=== PATIENT | female | born 1965 | race Two or more races ===

== ENCOUNTER 2018-08-02 11:35 | Emergency (ER) | payer BC, OTHER ==
[~2018-08-02] VITALS: Ht 165.1 cm; Wt 87.5 kg
--- NOTE | 2018-08-02 11:50 | NUR ---
bib family c/o midsternal cp radiates to left neck and shoulder since last night. PAIN IS 3/10, DULL. HAVING SOB. AOX4, AMB, VSS, RR EVEN AND UNLABORED. DENIES DIZZINESS, WEAKNESS, N/V. FAMILY AT BEDSIDE. MADE COMFORTABLE AND READY FOR EVAL
--- NOTE | 2018-08-02 11:52 | NUR ---
PHOEBE RICHARDSON AT BEDSIDE FOR EKG
--- NOTE | 2018-08-02 11:56 | NUR ---
Uyen wyman in [facility] - 08/02/18 at 1157 by [facility] AT BEDSIDE FOR BLOOD DRAW
--- NOTE | 2018-08-02 11:57 | NUR ---
XRAY AT BEDSIDE
[2018-08-02 12:05] LABS: BASOPHILS # (AUTO) 0.1 /CMM (0.0-0.2); BASOPHILS % (AUTO) 0.8 % (0.0-2.0); EOSINOPHILS % (AUTO) 4.1 % (0.0-6.0); HEMATOCRIT 37 % (33-45); HEMOGLOBIN 12.8 g/dL (11.5-14.8); LYMPHOCYTES # (AUTO) 2.6 /CMM (0.8-4.8); LYMPHOCYTES % (AUTO) 25.2 % (20.0-44.0); MEAN CORPUSCULAR HGB CONC 35 g/dl (31.0-36.0); MEAN CORPUSCULAR VOLUME 89 fL (82-100); MONOCYTES # (AUTO) 0.4 /CMM (0.1-1.30); MONOCYTES % (AUTO) 3.8 % (2.0-12.0); NEUTROPHILS # (AUTO) 6.8 /CMM (1.8-8.9); NEUTROPHILS % (AUTO) 66.1 % (43.0-81.0); PLATELET COUNT (AUTO) 297 /CMM (150-450); RED BLOOD CELL COUNT(AUTO) 4.15 MIL/uL (4.0-5.2); WHITE BLOOD COUNT (AUTO) 10.3 K/uL (4.3-11.0)
[2018-08-02 12:17] LABS: CALCIUM, SERUM 8.7 mg/dL (8.5-10.1); CARBON DIOXIDE 29 mmol/L (21-32); CHLORIDE 109 mmol/L (98-107); CREATININE 0.7 mg/dL (0.6-1.3); GLUCOSE 116 mg/dL (74-106); POTASSIUM 3.7 mmol/L (3.5-5.1); SODIUM SERUM 145 mmol/L (136-145); UREA NITROGEN, BLOOD 12 mg/dL (7-18)
[2018-08-02 12:22] LABS: ALANINE AMINOTRANSFERASE 18 U/L (12-78); ALBUMIN 3.4 g/dL (3.4-5.0); ALKALINE PHOSPHATASE 62 U/L (46-116); ASPARTATE AMINOTRANSFERASE 11 U/L (15-37); BILIRUBIN,DIRECT 0.1 mg/dL (0.0-0.2); BILIRUBIN,TOTAL 0.3 mg/dL (0.2-1.0); TOTAL PROTEIN, SERUM 6.9 g/dL (6.4-8.2)
--- NOTE | 2018-08-02 13:00 | NUR ---
Patient discharged to home in stable condition. Written and verbal after care instructions given. Patient verbalizes understanding of instruction.
[2018-08-02 13:30] VITALS: BP 136/92
== END 2018-08-02 13:00 | disposition home or self-care (01) ==
LOC: ER 11:35
DX: R07.89 Other chest pain (principal); I10 Essential (primary) hypertension
CPT/HCPCS: 36415; 71045-TC; 80048-TC; 80076-TC; 84484-TC; 85025-TC

== ENCOUNTER 2021-02-13 00:10 | Emergency (ER) | payer BC, OTHER ==
[~2021-02-13] VITALS: Ht 170.2 cm; Wt 90.7 kg
--- NOTE | 2021-02-13 00:25 | NUR ---
PATIENT BIBS C/O LEFT SIDED CHEST PAIN RADIATING TO THE BACK AND LEFT ARM SINCE TUESDAY. PATIENT TOOK IBUPROFEN AND NORCO FOR THE PAIN BUT NO RELIEF. PATIENT ALERT AND ORIENTED X4. AMBULATORY WITH NON LABORED BREATHING.
[2021-02-13] MEDS ORDERED: MORPHINE SULFATE INJ 2 MG/ML DISP.SYRIN IV ONE (00:30)
[2021-02-13] MEDS ORDERED: ASPIRIN 325 MG TABLET PO ONE (00:30)
[2021-02-13] MEDS ORDERED: MORPHINE SULFATE INJ 4 MG/ML DISP.SYRIN ONE (00:33)
[2021-02-13] MEDS ORDERED: ASPIRIN 325 MG TABLET ONE (00:33)
[2021-02-13 00:47] LABS: BASOPHILS % (AUTO) 0.5 % (0.0-2.0); EOSINOPHILS % (AUTO) 5.2 % (0.0-6.0); HEMATOCRIT 37 % (33-45); HEMOGLOBIN 12.6 g/dL (11.5-14.8); LYMPHOCYTES # (AUTO) 3.5 K/uL (0.8-4.8); LYMPHOCYTES % (AUTO) 38.3 % (20.0-44.0); MEAN CORPUSCULAR HGB CONC 34 g/dl (31.0-36.0); MEAN CORPUSCULAR VOLUME 91 fL (82-100); MONOCYTES # (AUTO) 0.4 K/uL (0.1-1.30); MONOCYTES % (AUTO) 4.2 % (2.0-12.0); NEUTROPHILS # (AUTO) 4.8 K/uL (1.8-8.9); NEUTROPHILS % (AUTO) 51.8 % (43.0-81.0); PLATELET COUNT (AUTO) 289 K/uL (150-450); RED BLOOD CELL COUNT(AUTO) 4.08 MIL/uL (4.0-5.2); WHITE BLOOD COUNT (AUTO) 9.2 K/uL (4.3-11.0)
[2021-02-13 01:00] LABS: ALANINE AMINOTRANSFERASE 23 U/L (12-78); ALBUMIN 3.8 g/dL (3.4-5.0); ALKALINE PHOSPHATASE 67 U/L (46-116); ASPARTATE AMINOTRANSFERASE 12 U/L (15-37); BILIRUBIN,DIRECT 0.1 mg/dL (0.0-0.2); BILIRUBIN,TOTAL 0.2 mg/dL (0.2-1.0); CALCIUM, SERUM 8.4 mg/dL (8.5-10.1); CARBON DIOXIDE 26 mmol/L (21-32); CHLORIDE 106 mmol/L (98-107); GLUCOSE 99 mg/dL (74-106); POTASSIUM 3.8 mmol/L (3.5-5.1); SODIUM SERUM 142 mmol/L (136-145); TOTAL PROTEIN, SERUM 7.1 g/dL (6.4-8.2); UREA NITROGEN, BLOOD 17 mg/dL (7-18)
[2021-02-13 01:01] LABS: D-DIMER 0.27 mg/L(FEU (0.17-0.50)
--- NOTE | 2021-02-13 01:03 | NUR ---
TAKEN TO RADIOLOGY
--- NOTE | 2021-02-13 01:56 | NUR ---
Patient discharged to home in stable condition. Written and verbal after care instructions given. Patient verbalizes understanding of instruction.IV removed. Catheter intact and site benign. Pressure and 4x4 applied to site. No bleeding noted. Pt ambulatory with a steady gait
[2021-02-13 02:26] VITALS: BP 159/88
== END 2021-02-13 01:56 | disposition home or self-care (01) ==
LOC: ER 00:13
DX: M25.512 Pain in left shoulder (principal); M54.6 Pain in thoracic spine; I10 Essential (primary) hypertension; Z98.890 Other specified postprocedural states; Z60.2 Problems related to living alone
CPT/HCPCS: 36415; 71045; 73200; 80048; 80076; 84484; 85025; 85378; 85730; 93005; 96374; 99285; J2270